=== PATIENT | male | born 1930 | race Caucasian/White ===

== ENCOUNTER 2017-08-01 05:45 | Observation (INO) | payer MEDICARE ==
[~2017-08-01] VITALS: Ht 152.4 cm; Wt 75.0 kg
[2017-08-01] VITALS (7 sets, daily range): BP systolic 143–188; BP diastolic 63–76; PULSE 46–60; RESP 16–24; TEMP 97.4–97.9; O2SAT 96–99
[~2017-08-01 05:45] MED LIST: AMBI5TAB PO; ASPI81TA82 PO; CIPR500T2 PO; CITRTAB7 PO; GABA300 PO; KEPP500T3 PO; LISI40TA PO; ZOCO40TA PO
[2017-08-01] MEDS ORDERED: SODIUM CHLORIDE 0.9% FLUSH 10 ML FLUSH IVF PRN (06:00)
[2017-08-01] MEDS ORDERED: LOSA50TA PO (06:16)
[2017-08-01] MEDS ORDERED: LATA0.002 EACH EYE (06:16)
[2017-08-01] MEDS ORDERED: SIMV20TA PO (06:16)
[2017-08-01] MEDS ORDERED: AMBI5TAB PO (06:16)
[2017-08-01] MEDS ORDERED: LEVE500 (06:16)
[2017-08-01] MEDS ORDERED: ASPI-516 CHEW (06:16)
[2017-08-01] MEDS ORDERED: GABA300C5 PO (06:16)
--- NOTE | 2017-08-01 06:16 | RADRPT ---
EXAM DATE: 08/01/2017 6:09 AM EDT AGE/SEX: 87 years / Male INDICATIONS: Chest pain CLINICAL DATA: This is the patient's initial encounter. Patient reports that signs and symptoms have been present for 1 month and indicates a pain score of 2/10. MEDICAL/SURGICAL HISTORY: None. None. COMPARISON: [facility] – [place], CHEST SINGLE AP, 08/09/2011. . FINDINGS: Single AP view of the chest. The lungs are clear. Cardiomediastinal silhouette within nor mal limits. No evidence of pleural effusion or pneumothorax. CONCLUSION: No acute cardiopulmonary disease identified. Electronically signed by: Mars Thompson MD 08/01/2017 6:15 AM EDT
[2017-08-01] MEDS: NITROGLYCERIN 0.4 MG SL 25 TABS/BTL SL SCH ×3 (06:29→07:40)
[2017-08-01] MEDS ORDERED: ASPIRIN 81 MG CHEW TAB PO ONE (06:30)
[2017-08-01 06:39] LABS: INTERNATIONAL NORMALIZED RATIO 1.1 RATIO; PROTHROMBIN TIME - PATIENT 10.7 SEC (9.8-11.6)
--- NOTE | 2017-08-01 06:39 | PD ---
HPI Chief Complaint: Chest Pain Time Seen by Provider: 06:02 Travel History International Travel<30 days: No Contact w/Intl Traveler<30days: No Traveled to known affect area: No History of Present Illness HPI Patient is a 87 year old male who presents to the ER with of chest pain. Patient reports that he has been having problems with tightness in his chest for the past few days. Patient reports that he woke up from sleep tonight and was not feeling well, reports that he continued to have tightness in his chest. Patient denies any shortness of breath, denies any diaphoresis, denies any nausea or vomiting with symptoms. Patient reports that nothing exacerbates symptoms, "relaxing makes his chest pain better." Patient reports that he was recently seen by his primary care doctor, Dr. Alva, he was switched from lisinopril to losartan 50 mg as he developed angioedema with the lisinopril. Patient reports that he has followed up with Dr. Krishna and was told that there was a blockage in his artery so he was started on a 20mg statin. Denies history of cardiac stents or bypass surgery PFSH Past Medical History Hx Anticoagulant Therapy: Yes (81 MG ASA) Cancer: No Cardiac Catheterization: Yes Cardiovascular Problems: Yes High Cholesterol: Yes Coronary Artery Disease: Yes Diminished Hearing: No Endocrine: No Gastrointestinal Disorders: No Genitourinary: Yes Hypertension: Yes Immune Disorder: No Implanted Vascular Access Dvce: No Insomnia: Yes Kidney Stones: Yes Neurologic: Yes Psychiatric: No Reproductive: No Respiratory: No Immunizations Current: Yes Seizures: Yes Tetanus Vaccination: Unknown Influenza Vaccination: Yes Past Surgical History Abdominal Surgery: Yes Cholecystectomy: Yes Neurologic Surgery: No Tonsillectomy: Yes Other Surgery: Yes Social History Alcohol Use: No Tobacco Use: No Substance Use: No Allergies-Medications (Allergen,Severity, Reaction): Coded Allergies: No Known Allergies (Verified Adverse Reaction, Unknown, 08/01/17) Reported Meds & Prescriptions Reported Meds & Active Scripts Active Reported Aspirin 81 Mg Chew 81 Mg CHEW DAILY Latanoprost Opth Drops (Latanoprost) 0.005% Drops 1 Drop EACH EYE HS Refrigerate until opened. Ambien (Zolpidem Tartrate) 5 Mg Tab 5 Mg PO HS PRN Losartan (Losartan Potassium) 50 Mg Tab 50 Mg PO DAILY Simvastatin 20 Mg Tab 20 Mg PO DAILY Gabapentin 300 Mg Cap 300 Mg PO TID Keppra (Levetiracetam) 500 Mg Tab 500 Mg BID Review of Systems General / Constitutional: No: Fever Eyes: No: Visual changes HENT: No: Headaches Cardiovascular: Positive: Chest Pain or Discomfort Respiratory: No: Shortness of Breath Gastrointestinal: No: Abdominal Pain Genitourinary: No: Dysuria Musculoskeletal: No: Pain Skin: No Rash Neurologic: No: Weakness Psychiatric: No: Depression Endocrine: No: Polydipsia Hematologic/Lymphatic: No: Easy Bruising Physical Exam Narrative GENERAL: Mild distress SKIN: Focused skin assessment warm/dry. HEAD: Atraumatic. Normocephalic. EYES: Pupils equal and round. No scleral icterus. No injection or drainage. ENT: No nasal bleeding or discharge. Mucous membranes pink and moist. NECK: Trachea midline. No JVD. CARDIOVASCULAR: Regular rate and rhythm. No murmur appreciated. RESPIRATORY: No accessory muscle use. Clear to auscultation. Breath sounds equal bilaterally. GASTROINTESTINAL: Abdomen soft, non-tender, nondistended. Hepatic and splenic margins not palpable. MUSCULOSKELETAL: No obvious deformities. No clubbing. No cyanosis. No edema. NEUROLOGICAL: Awake and alert. No obvious cranial nerve deficits. Motor grossly within normal limits. Normal speech. PSYCHIATRIC: Appropriate mood and affect; insight and judgment normal. Data Data Last Documented VS Vital Signs Date Time Temp Pulse Resp B/P (MAP) Pulse Ox O2 Delivery O2 Flow Rate FiO2 08/01/17 06:00 57 24 99 Room Air 08/01/17 05:46 97.4 188/76 (113) Orders Orders Electrocardiogram (08/01/17 05:54) B-Type Natriuretic Peptide (08/01/17 05:54) Ckmb (Isoenzyme) Profile (08/01/17 05:54) Complete Blood Count With Diff (08/01/17 05:54) Comprehensive Metabolic Panel (08/01/17 05:54) Magnesium (Mg) (08/01/17 05:54) Prothrombin Time / Inr (Pt) (08/01/17 05:54) Act Partial Throm Time (Ptt) (08/01/17 05:54) Troponin I (08/01/17 05:54) Lipase (08/01/17 05:54) Chest, Single Ap (08/01/17 05:54) Ecg Monitoring (08/01/17 05:54) Bilateral Bp Monitoring (08/01/17 05:54) Iv Access Insert/Monitor (08/01/17 05:54) Oximetry (08/01/17 05:54) Sodium Chloride 0.9% Flush (Ns Flush) (08/01/17 06:00) Aspirin Chew (Aspirin Chew) (08/01/17 06:30) Nitroglycerin Sl (Nitrostat Sl) (08/01/17 06:30) CKMB (08/01/17 06:00) CKMB% (08/01/17 06:00) Labs Laboratory Tests Test 08/01/17 06:00 White Blood Count 5.8 TH/MM3 Red Blood Count 5.03 MIL/MM3 Hemoglobin 14.6 GM/DL Hematocrit 43.6 % Mean Corpuscular Volume 86.7 FL Mean Corpuscular Hemoglobin 29.0 PG Mean Corpuscular Hemoglobin Concent 33.4 % Red Cell Distribution Width 12.9 % Platelet Count 220 TH/MM3 Mean Platelet Volume 8.1 FL Neutrophils (%) (Auto) 66.7 % Lymphocytes (%) (Auto) 17.9 % Monocytes (%) (Auto) 9.2 % Eosinophils (%) (Auto) 5.5 % Basophils (%) (Auto) 0.7 % Neutrophils # (Auto) 3.9 TH/MM3 Lymphocytes # (Auto) 1.0 TH/MM3 Monocytes # (Auto) 0.5 TH/MM3 Eosinophils # (Auto) 0.3 TH/MM3 Basophils # (Auto) 0.0 TH/MM3 CBC Comment DIFF FINAL Differential Comment Prothrombin Time 10.7 SEC Prothromb Time International Ratio 1.1 RATIO Activated Partial Thromboplast Time 28.7 SEC Blood Urea Nitrogen 13 MG/DL Creatinine 0.93 MG/DL Random Glucose 109 MG/DL Total Protein 6.7 GM/DL Albumin 4.0 GM/DL Calcium Level 8.5 MG/DL Magnesium Level 2.2 MG/DL Alkaline Phosphatase 43 U/L Aspartate Amino Transf (AST/SGOT) 18 U/L Alanine Aminotransferase (ALT/SGPT) 20 U/L Total Bilirubin 1.8 MG/DL Sodium Level 142 MEQ/L Potassium Level 3.7 MEQ/L Chloride Level 103 MEQ/L Carbon Dioxide Level 30.3 MEQ/L Anion Gap 9 MEQ/L Estimat Glomerular Filtration Rate 77 ML/MIN Total Creatine Kinase 101 U/L Troponin I LESS THAN 0.02 NG/ML Lipase 386 U/L MDM Medical Decision Making Medical Screen Exam Complete: Yes Emergency Medical Condition: Yes Medical Record Reviewed: Yes Interpretation(s) EKG at 0557: Sinus pau at 53bpm, qt/qtc: 423/405, no acute st or t wave changes Vital Signs Date Time Temp Pulse Resp B/P (MAP) Pulse Ox O2 Delivery O2 Flow Rate FiO2 08/01/17 06:00 57 24 99 Room Air 08/01/17 06:00 24 99 Room Air 08/01/17 05:46 97.4 60 18 188/76 (113 96 Differential Diagnosis ACS, arrhythmia, electrolyte abnormalities, PE, pneumothorax Narrative Course During the course of the patients emergency department visit, the patients history, examination, and differential diagnosis were reviewed with the patient. The patient was placed on a satellite project site monitor with oximetry and frequent blood pressure monitoring. The patient had an IV access obtained and blood work sent for analysis. The patient was initially provided aspirin 162mg as well as nitro Radiology studies were reviewed and remarkable for Last Impressions Chest X-Ray 08/01/17 0554 Signed Impressions: CONCLUSION: No acute cardiopulmonary disease identified. The patients laboratory studies were reviewed and remarkable for Laboratory Tests Test 08/01/17 06:00 White Blood Count 5.8 TH/MM3 (4.0-11.0) Red Blood Count 5.03 MIL/MM3 (4.50-5.90) Hemoglobin 14.6 GM/DL (13.0-17.0) Hematocrit 43.6 % (39.0-51.0) Mean Corpuscular Volume 86.7 FL (80.0-100.0) Mean Corpuscular Hemoglobin 29.0 PG (27.0-34.0) Mean Corpuscular Hemoglobin Concent 33.4 % (32.0-36.0) Red Cell Distribution Width 12.9 % (11.6-17.2) Platelet Count 220 TH/MM3 (150-450) Mean Platelet Volume 8.1 FL (7.0-11.0) Neutrophils (%) (Auto) 66.7 % (16.0-70.0) Lymphocytes (%) (Auto) 17.9 % (9.0-44.0) Monocytes (%) (Auto) 9.2 % (0.0-8.0) Eosinophils (%) (Auto) 5.5 % (0.0-4.0) Basophils (%) (Auto) 0.7 % (0.0-2.0) Neutrophils # (Auto) 3.9 TH/MM3 (1.8-7.7) Lymphocytes # (Auto) 1.0 TH/MM3 (1.0-4.8) Monocytes # (Auto) 0.5 TH/MM3 (0-0.9) Eosinophils # (Auto) 0.3 TH/MM3 (0-0.4) Basophils # (Auto) 0.0 TH/MM3 (0-0.2) CBC Comment DIFF FINAL Differential Comment Prothrombin Time 10.7 SEC (9.8-11.6) Prothromb Time International Ratio 1.1 RATIO Activated Partial Thromboplast Time 28.7 SEC (24.3-30.1) Blood Urea Nitrogen 13 MG/DL (7-18) Creatinine 0.93 MG/DL (0.60-1.30) Random Glucose 109 MG/DL (74-106) Total Protein 6.7 GM/DL (6.4-8.2) Albumin 4.0 GM/DL (3.4-5.0) Calcium Level 8.5 MG/DL (8.5-10.1) Magnesium Level 2.2 MG/DL (1.5-2.5) Alkaline Phosphatase 43 U/L (45-117) Aspartate Amino Transf (AST/SGOT) 18 U/L (15-37) Alanine Aminotransferase (ALT/SGPT) 20 U/L (12-78) Total Bilirubin 1.8 MG/DL (0.2-1.0) Sodium Level 142 MEQ/L (136-145) Potassium Level 3.7 MEQ/L (3.5-5.1) Chloride Level 103 MEQ/L (98-107) Carbon Dioxide Level 30.3 MEQ/L (21.0-32.0) Anion Gap 9 MEQ/L (5-15) Estimat Glomerular Filtration Rate 77 ML/MIN (>89) Total Creatine Kinase 101 U/L (39-308) Troponin I LESS THAN 0.02 NG/ML Lipase 386 U/L (73-393) Patient with relief of chest pain after 2 sublingual nitroglycerin. Will observe in the chest pain unit. Diagnosis Primary Impression: Chest pain Qualified Codes: R07.9 - Chest pain, unspecified Admitting Information Admitting Physician Requests: Observation Carina Carr DO Aug 01, 2017 06:39
[2017-08-01 06:40] LABS: AUTOMATED NEUTROPHIL # 3.9 TH/MM3 (1.8-7.7); BASOPHIL % 0.7 % (0.0-2.0); EOSINOPHIL # 0.3 TH/MM3 (0-0.4); EOSINOPHIL % 5.5 % (0.0-4.0); HEMATOCRIT 43.6 % (39.0-51.0); HEMOGLOBIN 14.6 GM/DL (13.0-17.0); LYMPH % 17.9 % (9.0-44.0); MEAN CELL VOLUME 86.7 FL (80.0-100.0); MEAN CORPUSCULAR HGB CONC 33.4 % (32.0-36.0); MEAN PLATELET VOLUME 8.1 FL (7.0-11.0); MONO % 9.2 % (0.0-8.0); MONOCYTE # 0.5 TH/MM3 (0-0.9); NEUT % 66.7 % (16.0-70.0); PLATELET COUNT 220 TH/MM3 (150-450); RED BLOOD COUNT 5.03 MIL/MM3 (4.50-5.90); RED CELL DISTRIBUTION WIDTH 12.9 % (11.6-17.2); WHITE BLOOD COUNT 5.8 TH/MM3 (4.0-11.0)
[2017-08-01 06:48] LABS: ALT (GPT) 20 U/L (12-78); AST (GOT) 18 U/L (15-37); BICARBONATE 30.3 MEQ/L (21.0-32.0); BLOOD UREA NITROGEN 13 MG/DL (7-18); CALCIUM 8.5 MG/DL (8.5-10.1); CHLORIDE 103 MEQ/L (98-107); CREATININE 0.93 MG/DL (0.60-1.30); GLOMERULAR FILTRATION RATE 77 ML/MIN (>89); GLUCOSE,RANDOM 109 MG/DL (74-106); MAGNESIUM 2.2 MG/DL (1.5-2.5); SODIUM (NA) 142 MEQ/L (136-145)
[2017-08-01 06:52] LABS: ALKALINE PHOSPHATASE 43 U/L (45-117); TOTAL BILIRUBIN ADULT 1.8 MG/DL (0.2-1.0); TOTAL PROTEIN 6.7 GM/DL (6.4-8.2); TROPONIN I LESS THAN 0.02 NG/ML (0.02-0.05)
[2017-08-01] MEDS ORDERED: SODIUM CHLORIDE 0.9% FLUSH 10 ML FLUSH IV FLUSH PRN (07:00)
--- NOTE | 2017-08-01 08:22 | HHI.HP ---
HPI Primary Care Physician Joan Krishna MD Chief Complaint Chest tightness History of Present Illness 87-year-old male with known hypertension and hyperlipidemia presents emergency room for further evaluation of chest tightness. Onset 0400. Reports waking up feeling anxious with chest tightness. Reports recently started a new blood pressure medication on Monday. Endorses becoming worried new blood pressure medications was not working. BP was 190/85 therefore came to ER for further evaluation. No associated symptoms of nausea, vomiting, dyspnea, or diaphoresis. Unable to give accurate duration. Also reports a different chest discomfort as described above. Onset 3 days after straining during a bowel movement. Location substernal. Characterized as "achy and sore." No radiation. No associated symptoms of nausea, vomiting, dyspnea, or diaphoresis. Duration constant x3 days. No relieving factors. Denies similar pain in the past. Expresses concern over chest soreness last 3 days and has worried about blood pressure and chest soreness causing him anxiety. Review of Systems General: No fatigue, weakness, fever, chills, recent illness, or change in appetite. Has been in his general state of health. HEENT: No WHITNEY, no vision changes, no nasal congestion or drainage CV: Constant chest pain x3 days as stated above. No further chest tightness. RESP: No SOB, cough, or wheeze GI: No nausea, vomiting, bowel changes, diarrhea, pain, distention, melena, or blood in the stool. History of constipation. No change in appetite, no unintentional weight gain or weight loss. : No dysuria, urgency, frequency EXT: No lower leg edema, no paraesthesias MS: No change in ROM. Chest discomfort after straining with bowel movement x3 days ago. NEURO: No change in memory, dizziness, difficulty with balance, LOC, or motor/ sensory deficits PSYCH: No anxiety, depression, or suicidal ideation SKIN: No rashes, no concerning lesions Past Family Social History Allergies: Coded Allergies: No Known Allergies (Verified Allergy, Unknown, 08/01/17) Past Medical History Hypertension, hyperlipidemia, renal calculi, seizure disorder, insomnia Past Surgical History Cholecystectomy Reported Medications Reported Meds & Active Scripts Active Reported Aspirin 81 Mg Chew 81 Mg CHEW DAILY Latanoprost Opth Drops (Latanoprost) 0.005% Drops 1 Drop EACH EYE HS Refrigerate until opened. Ambien (Zolpidem Tartrate) 5 Mg Tab 5 Mg PO HS PRN Losartan (Losartan Potassium) 50 Mg Tab 50 Mg PO DAILY Simvastatin 20 Mg Tab 20 Mg PO DAILY Gabapentin 300 Mg Cap 300 Mg PO TID Keppra (Levetiracetam) 500 Mg Tab 500 Mg BID Active Ordered Medications Current Medications Medications (Trade) Dose Ordered Sig/Mejia Route Start Time Stop Time Status Last Admin (NS Flush) 2 ml UNSCH PRN IVF 08/01/17 06:00 (NS Flush) 2 ml UNSCH PRN IV FLUSH 08/01/17 07:00 (NS Flush) 2 ml BID IV FLUSH 08/01/17 09:00 (Keppra) 500 mg Q12HR PO 08/01/17 09:00 (Neurontin) 300 mg TID PO 08/01/17 09:00 (Cozaar) 50 mg DAILY PO 08/01/17 09:00 Social History Known hypertension and hyperlipidemia. No known diabetes. Lifelong non-smoker. Denies any alcohol use. Past cardiac testing No recent cardiac testing. 02/24/10 Cardiac catheterization (Dr. Krishna)-Conclusions 1. Normal left auricular function. 2. Diffuse three-vessel coronary disease. Physical Exam Vital Signs Vital Signs Date Time Temp Pulse Resp B/P (MAP) Pulse Ox O2 Delivery O2 Flow Rate FiO2 08/01/17 07:39 46 18 149/70 (96) 98 Room Air 08/01/17 06:00 57 24 99 Room Air 08/01/17 06:00 24 99 Room Air 08/01/17 05:46 97.4 60 18 188/76 (113) 96 Physical Exam GENERAL: Alert WN, WD, NAD, pleasant, elderly male HEAD: NC, AT CV: RRR, without murmur, rub, gallop, no JVD, S1-S2 no S3-S4. Generalized chest tender with palpation. RESP: Clear lungs throughout bilateral, no crackles, wheeze, rhonchi, symmetrical chest rise, nonlabored, able to speak in full sentences ABD: Soft, NT, ND, no masses, positive bowel tones EXT: Pulses +2x4, no dependent edema MS: Normal tone x4 extremities, nontender, no obvious deformities, full range of motion NEURO: CN II through CN XII grossly intact, motor strength 5/5, gait WNL PSYCH: A+O x3, pleasant affect, appropriate speech, insight, and judgement. Anxious mood. SKIN: Normal turgor, normal texture, no lesions, no rashes, brisk cap refill, even hair distribution Laboratory Laboratory Tests Test 08/01/17 06:00 White Blood Count 5.8 Red Blood Count 5.03 Hemoglobin 14.6 Hematocrit 43.6 Mean Corpuscular Volume 86.7 Mean Corpuscular Hemoglobin 29.0 Mean Corpuscular Hemoglobin Concent 33.4 Red Cell Distribution Width 12.9 Platelet Count 220 Mean Platelet Volume 8.1 Neutrophils (%) (Auto) 66.7 Lymphocytes (%) (Auto) 17.9 Monocytes (%) (Auto) 9.2 Eosinophils (%) (Auto) 5.5 Basophils (%) (Auto) 0.7 Neutrophils # (Auto) 3.9 Lymphocytes # (Auto) 1.0 Monocytes # (Auto) 0.5 Eosinophils # (Auto) 0.3 Basophils # (Auto) 0.0 CBC Comment DIFF FINAL Differential Comment Prothrombin Time 10.7 Prothromb Time International Ratio 1.1 Activated Partial Thromboplast Time 28.7 Blood Urea Nitrogen 13 Creatinine 0.93 Random Glucose 109 Total Protein 6.7 Albumin 4.0 Calcium Level 8.5 Magnesium Level 2.2 Alkaline Phosphatase 43 Aspartate Amino Transf (AST/SGOT) 18 Alanine Aminotransferase (ALT/SGPT) 20 Total Bilirubin 1.8 Sodium Level 142 Potassium Level 3.7 Chloride Level 103 Carbon Dioxide Level 30.3 Anion Gap 9 Estimat Glomerular Filtration Rate 77 Total Creatine Kinase 101 Creatine Kinase MB 1.8 Troponin I LESS THAN 0.02 B-Type Natriuretic Peptide 7 Lipase 386 Result Diagram: 08/01/17 0608/01/17 06 Imaging Last 48 hours Impressions Chest X-Ray 08/01/17 0554 Signed Impressions: CONCLUSION: No acute cardiopulmonary disease identified. Course EKG Normal sinus rhythm, no ST-T segment change Caprini VTE Risk Assessment Caprini VTE Risk Assessment: Mod/High Risk (score >= 2) Caprini Risk Assessment Model Point Value = 1 Point Value = 2 Point Value = 3 Point Value = 5 Age 41-60 Minor surgery BMI > 25 kg/m2 Swollen legs Varicose veins or History of unexplained or recurrent spontaneous Oral contraceptives or hormone replacement Sepsis (< 1 month) Serious lung disease, including pneumonia (< 1 month) Abnormal pulmonary function Acute myocardial infarction Congestive heart failure (< 1 month) History of inflammatory bowel disease Medical patient at bed rest Age 61-74 Arthroscopic surgery Major open surgery (> 45 min) Laparoscopic surgery (> 45 min) Malignancy Confined to bed (> 72 hours) Immobilizing plaster cast Central venous access Age >= 75 History of VTE Family history of VTE Factor V Leiden Prothrombin [id number] Lupus anticoagulant Anticardiolipin antibodies Elevated serum homocysteine Heparin-induced thrombocytopenia Other congenital or acquired thrombophilia Stroke (< 1 month) Elective arthroplasty Hip, pelvis, or leg fracture Acute spinal cord injury (< 1 month) Prophylaxis Regimen Total Risk Factor Score Risk Level Prophylaxis Regimen 0-1 Low Early ambulation 2 Moderate Order ONE of the following: *Sequential Compression Device (SCD) *Heparin 5000 units SQ BID 3-4 Higher Order ONE of the following medications: *Heparin 5000 units SQ TID *Enoxaparin/Lovenox 40 mg SQ daily (WT < 150 kg, CrCl > 30 mL/min) *Enoxaparin/Lovenox 30 mg SQ daily (WT < 150 kg, CrCl > 10-29 mL/min) *Enoxaparin/Lovenox 30 mg SQ BID (WT < 150 kg, CrCl > 30 mL/min) AND/OR *Sequential Compression Device (SCD) 5 or more Highest Order ONE of the following medications: *Heparin 5000 units SQ TID (Preferred with Epidurals) *Enoxaparin/Lovenox 40 mg SQ daily (WT < 150 kg, CrCl > 30 mL/min) *Enoxaparin/Lovenox 30 mg SQ daily (WT < 150 kg, CrCl > 10-29 mL/min) *Enoxaparin/Lovenox 30 mg SQ BID (WT < 150 kg, CrCl > 30 mL/min) AND *Sequential Compression Device (SCD) Assessment and Plan Assessment and Plan #1 Atypical chest pain-admitted to chest pain center. Continue ACS protocol initiated in ER, including 3 sets of EKGs and cardiac enzymes. Seen and evaluated by Dr. Dolly Jaquez. Call placed to Dr. Krishna office to make aware of patient's arrival to chest pain center and discussed plan of care. Likely will rule out with 3 sets of EKGs and cardiac enzymes and discharge home keeping follow-up appointment with Dr. Krishna on 08/09/17. Reassurance provided chest discomfort mostly musculoskeletal chest wall pain. Encouraged applying heat to affect area and using over the counter Aleve as needed for next 2 days. #2 History of hypertension-continue losartan, add vasodilator amlodipine 2.5 mg po daily. Discussed keeping a blood pressure log is helpful, however worry regarding maintaining blood pressure within a certain limit can lead to elevation of blood pressure. Encouraged taking blood pressure during times of relaxation and not taking during times he feels anxious. Encouraged low sodium diet. Instructed to call him PCP upon discharge to scheduled follow up appointment and make PCP aware of medication change. [phone] with Dr Krishna's office, RN Gabrielle. Made aware of plan to add amlodipine and possible discharge after ACS ruled out later this afternoon. Requested Dr. Krishna return call if any further cardiac testing recommended prior to discharge, otherwise [employer] plan would be to discharge home keeping scheduled appointment with Dr. Krishna on 08/09/17. Jenny Leahy Aug 01, 2017 08:22
[2017-08-01] MEDS ORDERED: ONDANSETRON ODT 4 MG TAB PO PRN (08:30)
[2017-08-01] MEDS ORDERED: ACETAMINOPHEN 500 MG CPLT PO PRN (08:30)
[2017-08-01] MEDS ORDERED: NITROGLYCERIN 0.4 MG SL 25 TABS/BTL SL PRN (08:30)
[2017-08-01] MEDS ORDERED: LOSARTAN 50 MG TAB PO SCH (09:00)
[2017-08-01] MEDS ORDERED: levETIRAcetam 500 MG TAB PO SCH (09:00)
[2017-08-01] MEDS ORDERED: ASPIRIN 325 MG TAB PO SCH (09:00)
[2017-08-01] MEDS ORDERED: GABAPENTIN 300 MG CAP PO SCH (09:00)
[2017-08-01] MEDS ORDERED: SODIUM CHLORIDE 0.9% FLUSH 10 ML FLUSH IV FLUSH SCH (09:00)
[2017-08-01 09:36] LABS: TROPONIN I LESS THAN 0.02 NG/ML (0.02-0.05)
[2017-08-01 12:07] LABS: TROPONIN I LESS THAN 0.02 NG/ML (0.02-0.05)
[2017-08-01] MEDS ORDERED: AMLO2.5T PO (12:24)
--- NOTE | 2017-08-01 12:24 | HHI.DCPOC ---
Discharge Care Plan Diagnosis: (1) Musculoskeletal chest pain (2) Hypertension Goals to Promote Your Health * To prevent worsening of your condition and complications * To maintain your health at the optimal level Directions to Meet Your Goals Take your medications as prescribed Follow your dietary instruction Follow activity as directed Keep your appointments as scheduled Take your immunizations and boosters as scheduled If your symptoms worsen call your PCP, if no PCP go to Urgent Care Center or Emergency Room Smoking is Dangerous to Your Health. Avoid second hand smoke Call the 24-hour hour crisis hotline for domestic abuse at Jenny Leahy Aug 01, 2017 12:24
--- NOTE | 2017-08-01 13:59 | EKG ---
Date Performed: 08/01/2017 Time Performed: 09:25:19 PTAGE: 87 years EKG: SINUS BRADYCARDIA POSSIBLE RIGHT VENTRICULAR CONDUCTION DELAY SEPTAL MYOCARDIAL INFARCTION ABNORMAL ECG No significant change from prior electrocardiogram. PREVIOUS TRACING : 08/01/2017 05.57 DOCTOR: Devaughn Lynch Interpretating Date/Time 08/01/2017 13:59:12
--- NOTE | 2017-08-01 14:11 | EKG ---
Date Performed: 08/01/2017 Time Performed: 05:57:18 PTAGE: 87 years EKG: SINUS BRADYCARDIA SEPTAL MYOCARDIAL INFARCTION ABNORMAL ECG Compared to prior electrocardio gram, rate has decreased . DOCTOR: Devaughn Lynch Interpretating Date/Time 08/01/2017 14:09:20
== END 2017-08-01 13:10 | disposition home or self-care (01) ==
LOC: NEPC 05:45 → NEDA 06:59 → NEPGCP 09:40
PROVIDERS: ADMIT Internal Medicine Interventional Cardiology; ATTEND Internal Medicine Interventional Cardiology
DX: R07.89 Other chest pain (principal); I25.10 Atherosclerotic heart disease of native coronary artery without angina pectoris; I10 Essential (primary) hypertension; E78.5 Hyperlipidemia, unspecified; G40.909 Epilepsy, unspecified, not intractable, without status epilepticus; R00.1 Bradycardia, unspecified; R94.31 Abnormal electrocardiogram [ECG] [EKG]; Z79.899 Other long term (current) drug therapy; Z79.82 Long term (current) use of aspirin
CPT/HCPCS: 71045; 80053; 82550; 82552; 83690; 83735; 83880; 84484; 85025; 85610; 85730; 93005; 99285; G0378

== ENCOUNTER 2017-08-27 20:50 | Observation (INO) ==
--- NOTE | 2017-08-27 21:23 | ED ---
HPI General Chief complaint: Chest Pain Stated complaint: Chest tightness/Reaction to Bp meds Time Seen by Provider: 08/27/17 21:10 Source: patient Mode of arrival: ambulatory Limitations: no limitations History of Present Illness HPI narrative: 87yo M with PMH of HTN presents to the ED with c/o burning sensation in left chest for 2 hours. Associated with some ache in left arm and sob. Said he has been having these episodes for 2 weeks. He follows with Dr. Krishna and is scheduled to have stress test next week. Last stress test was a while ago. Denies any fever, cough, n/v, abdominal pain, focal weakness or numbness. Pt's primary care physician had recently switched his HTN medication from lisinopril to losartan because of angioedema and feel that all these symptoms are reaction to his new medication. Related Data Home Medications Medication Instructions Recorded Confirmed aspirin [Aspir-81] 81 mg PO DAILY 08/27/17 08/27/17 gabapentin 300 mg PO TID 08/27/17 08/27/17 levetiracetam 500 mg PO Q12H 08/27/17 08/27/17 losartan 50 mg PO DAILY 08/27/17 08/27/17 sertraline [Zoloft] 25 mg PO DAILY 08/27/17 08/27/17 simvastatin 20 mg PO QPM 08/27/17 08/27/17 timolol 1 drp OPHTHALMIC (EYE) BID 08/27/17 08/27/17 zolpidem [Ambien] 5 mg PO HS 08/27/17 08/27/17 Allergies Allergy/AdvReac Type Severity Reaction Status Date / Time No Known Allergies Allergy Verified 08/27/17 23:32 Review of Systems ROS Unobtainable All other systems reviewed negative except as stated in HPI [facility] Medical History Medical History Chest pain (Acute) Hypertension (Acute) Anxiety (Acute) Social History Social History Second Hand Smoke Exposure: No Smoking Status: Former smoker Tobacco Type: Cigarettes How Often Do You Have a Drink Containing Alcohol: Monthly or less Recent Travel in [facility] within the Last 8 Weeks: No Recent Out of Country Travel within the Last 8 Weeks: No Immunization History Tetanus Immunization: Unsure Exam Narrative Exam Narrative: GENERAL: 87yo M not in distress. SKIN: Focused skin assessment warm/dry. HEAD: Atraumatic. Normocephalic. EYES: Pupils equal and round. No scleral icterus. No injection or drainage. ENT: No nasal bleeding or discharge. Mucous membranes pink and moist. NECK: Trachea midline. No JVD. CARDIOVASCULAR: Regular rate and rhythm. No murmur appreciated. RESPIRATORY: No accessory muscle use. Clear to auscultation. Breath sounds equal bilaterally. GASTROINTESTINAL: Abdomen soft, non-tender, nondistended. MUSCULOSKELETAL: No obvious deformities. No clubbing. No cyanosis. No edema. NEUROLOGICAL: Awake and alert. No obvious cranial nerve deficits. Motor grossly within normal limits. Normal speech. PSYCHIATRIC: Appropriate mood and affect; insight and judgment normal. Course Initial Documented Vital Signs Temperature 98.1 F 08/27/17 20:55 Pulse Rate 83 08/27/17 20:55 Respiratory Rate 18 08/27/17 20:55 Blood Pressure 151/64 H 08/27/17 20:55 Pulse Oximetry 98 08/27/17 20:55 Last Documented Vital Signs Temperature 98.1 F 08/27/17 20:59 Pulse Rate 61 08/28/17 00:54 Respiratory Rate 16 08/28/17 00:54 Blood Pressure 129/67 08/28/17 00:54 Pulse Oximetry 98 08/28/17 00:03 Medical Decision Making MDM Narrative Medical decision making narrative: 87yo M here with atypical chest pain. Pt was just admitted to chest pain center on 08/01/17 but they did not do any stress test. Pt follows with Dr. Krishna and is suppose to have a stress test scheduled on 09/04/17. Labs reviewed, no leukocytosis. H/H normal. Troponin negative. CXR showed no active disease. Pt given aspirin and protonix which helped with pain. Even though chest pain is atypical, it was associated with sob and left arm pain. He has not had a stress test for 10 years and would rather stay here and have stress test than wait until 09/04. Will admit for serial EKG, cardiac enzyme and likely stress test in the morning. Differential Diagnosis Differential Diagnosis: ACS vs. anxiety vs. GERD vs. musculoskeletal pain Lab Data Result diagrams: 08/27/17 21:40 08/27/17 21:40 Lab Results 08/27/17 08/27/17 08/27/17 Range/Units 21:40 21:40 21:40 CBC w Diff Auto diff final WBC 10.8 (4.0-11.0) th/mm3 RBC 4.94 (4.50-5.90) mil/mm3 Hgb 14.7 (13.0-17.0) gm/dL Hct 43.0 (39.0-51.0) % MCV 87.0 (80.0-100.0) fL MCH 29.7 (27.0-34.0) pg MCHC 34.2 (32.0-36.0) % RDW 12.6 (11.6-17.2) % Plt Count 275 (150-450) th/mm3 MPV 8.7 (7.0-11.0) fL Neut % (Auto) 78.2 H (16.0-70.0) % Lymph % (Auto) 10.0 (9.0-44.0) % [place] % (Auto) 8.3 H (0.0-8.0) % Eos % (Auto) 0.8 (0.0-4.0) % Baso % (Auto) 2.7 H (0.0-2.0) % Neut # (Auto) 8.4 H (1.8-7.7) th/mm3 Lymph # (Auto) 1.1 (1.0-4.8) th/mm3 [place] # (Auto) 0.9 (0.0-0.9) th/mm3 Eos # (Auto) 0.1 (0.0-0.4) th/mm3 Baso # (Auto) 0.3 H (0.0-0.2) th/mm3 WBC Differential . Differential Comment . PT 11.1 (9.8-11.6) sec INR 1.1 Ratio APTT 27.6 (24.3-30.1) sec Sodium 139 (136-145) meq/L Potassium 3.6 (3.5-5.1) meq/L Chloride 103 (98-107) meq/L Carbon Dioxide 29.2 (21.0-32.0) meq/L Anion Gap 7 (5-15) meq/L BUN 16 (7-18) mg/dL Creatinine 0.78 (0.60-1.30) mg/dL Estimated GFR Greater than 89 (>89) mL/min Random Glucose 123 H (74-106) mg/dL Calcium 8.5 (8.5-10.1) mg/dL Magnesium 2.0 (1.5-2.5) mg/dL Troponin I Less than 0.02 L (0.02-0.05) ng/mL Imaging Data Radiologist's impression: ITS Impressions Chest X-Ray 08/27/17 21:19 CONCLUSION: No active disease. ECG Data EKG Prior to Arrival: No Attestation: I personally reviewed and interpreted this ECG as follows: Interpretation: NSR 60bpm. LAD. No ST segment elevation or depression. Discharge Plan Discharge Disposition Patient Disposition: 30 Still Patient Physicians Team ED Provider: Odalys Combs Primary Care Provider: Jefferson Sweeney Attending Provider: Carina Schultz Discharge Interventions Interventions: Vital Signs Last Done: 08/27/17 21:12 Vital Signs Last Done: 08/28/17 00:03 Status ED Status: Admitted Observation Patient
[2017-08-27 21:48] LABS: Baso # (Auto) 0.3 th/mm3 (0.0-0.2); Baso % (Auto) 2.7 % (0.0-2.0); Eos # (Auto) 0.1 th/mm3 (0.0-0.4); Eos % (Auto) 0.8 % (0.0-4.0); Hemoglobin 14.7 gm/dL (13.0-17.0); Lymph # (Auto) 1.1 th/mm3 (1.0-4.8); Mean Corpuscular HGB Conc 34.2 % (32.0-36.0); Mean Corpuscular Hemoglobin 29.7 pg (27.0-34.0); Mean Platelet Volume 8.7 fL (7.0-11.0); Mono # (Auto) 0.9 th/mm3 (0.0-0.9); Mono % (Auto) 8.3 % (0.0-8.0); Neut # (Auto) 8.4 th/mm3 (1.8-7.7); Neut % (Auto) 78.2 % (16.0-70.0); Platelet Count 275 th/mm3 (150-450); Red Blood Count 4.94 mil/mm3 (4.50-5.90); Red Cell Distribution Width 12.6 % (11.6-17.2); White Blood Count 10.8 th/mm3 (4.0-11.0)
[2017-08-27 21:55] LABS: Chloride 103 meq/L (98-107); Potassium 3.6 meq/L (3.5-5.1); Sodium 139 meq/L (136-145)
[2017-08-27 21:58] LABS: Anion Gap 7 meq/L (5-15); Blood Urea Nitrogen 16 mg/dL (7-18); Calcium 8.5 mg/dL (8.5-10.1); Carbon Dioxide 29.2 meq/L (21.0-32.0); Glucose,Random 123 mg/dL (74-106)
[2017-08-27 22:01] LABS: Activated Partial Thrombo Time 27.6 sec (24.3-30.1); INR 1.1 Ratio; Prothrombin Time 11.1 sec (9.8-11.6)
[2017-08-27 22:02] LABS: Glomerular Filtration Rate Greater Than 89 mL/min (>89)
--- NOTE | 2017-08-27 22:07 | XR ---
EXAM DATE: 08/27/2017 9:58 PM EDT AGE/SEX: 87 years / Male INDICATIONS: Chest tightness. CLINICAL DATA: This is the patient's initial encounter. Patient reports that signs and symptoms have been present for 1 day and indicates a pain score of 2/10. MEDICAL/SURGICAL HISTORY: None. None. COMPARISON: [facility] [place], CHEST SINGLE AP, 08/01/2017. . FINDINGS: A single AP view of the chest demonstrates the lungs to be symmetrically aerated without evidence of mass, infiltrate or effusion. The cardiomediastinal contours are unremarkable. Osseous structures a re intact. CONCLUSION: No active disease. Electronically signed by: Manuel Donnelly MD 08/27/2017 10:06 PM EDT
[2017-08-28] MEDS ORDERED: Morphine Inj 4 MG/ML Vial IV.PUSH PRN (00:05)
[2017-08-28] MEDS ORDERED: Acetaminophen 500 MG Tablet PO PRN (00:05)
[2017-08-28] MEDS ORDERED: Regadenoson Inj 0.4 MG/5 ML Syringe IV.PUSH ONE (00:11)
[2017-08-28] MEDS ORDERED: Heparin - SQ 10,000 UNITS/ML Vial SQ SCH (00:15)
[2017-08-28 01:52] LABS: Creatine Kinase 88 U/L (39-308)
[2017-08-28] MEDS ORDERED: hydrALAZINE HCl Inj 20 MG/ML Vial IV.PUSH ONE (04:46)
[2017-08-28 04:57] LABS: Creatine Kinase 96 U/L (39-308)
--- NOTE | 2017-08-28 08:56 | P.HP ---
History of Present Illness Primary Care Physician: Jefferson Sweeney MD Chief Complaint: Chest pain History of Present Illness: 87-year-old male with known history of hypertension, hyperlipidemia, coronary artery disease, seizure disorder who presented the hospital because of chest pain. Patient states that his symptoms started approximately 1 month ago. He states that he was straining to have a bowel movement and started developing chest discomfort. He states that is intermittent in lasts for a couple minutes at a time and resolves on its own. He classifies at 8/10 on a pain scale. 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 Krishna approximately 1-1/2 weeks ago. Patient is scheduled to have an outpatient stress test done in a few days. Patient indicates that he has not had any recurrent pain since being admitted to the hospital. He denies any nausea, vomiting, shortness of breath, dyspnea, radiation of pain to neck, back, shoulder, arm. Denies any lightheadedness, dizziness. Patient has had previous cardiac catheterization done in 2010, at that time patient had multivessel disease ranging up to 70%, patient is being medically managed at this time. Patient has not had any intervention. - Diagnosis (1) Chest pain Review of Systems All other systems reviewed negative except as stated in HPI Cardiovascular: Reports chest pain PMFSH - History History Provided By: Patient - Medical History Medical History: Medical History (Last Updated 08/28/17 @ 08:13 by CYNTHIA Gibson) Chest pain Coronary artery disease History of renal calculi History of seizures Hyperlipidemia Hypertension Insomnia Anxiety - Surgical History Surgical History: Surgical History (Last Updated 08/28/17 @ 08:13 by CYNTHIA Gibson) History of cardiac catheterization History of cholecystectomy History of tonsillectomy - Family History Family History: Family History (Last Updated 08/28/17 @ 08:51 by CYNTHIA Gibson) Mother Family history of cancer - Tobacco History Second Hand Smoke Exposure: No Tobacco Use In Past 30 Days: No Smoking Status: Never smoker - Alcohol History How Often Do You Have a Drink Containing Alcohol: Never - Substance Use History Substance History: No History of Abuse - Travel History Recent Travel in the [place] Within the Last 8 Weeks: No Recent Travel Out of the Country Within the Last 8 Weeks: No - Immunization History Tetanus Immunization: <5 Years Hx Influenza Vaccine This Season: Yes Medications and Allergies Active Medications: Active Medications Acetaminophen (Tylenol) 500 mg PO Q4H PRN PRN Reason: HEADACHE Hydrocodone Bitart/Acetaminophen ([place] 7.5/325) 1 tab PO Q4H PRN PRN Reason: PAIN SCALE 1 TO 7 Gabapentin (Neurontin) 300 mg PO TID [facility] Heparin Sodium (Porcine) (Heparin Inj) 5,000 units SQ Q12H [facility] Last Admin: 08/28/17 00:49 Dose: 5,000 units Levetiracetam (Keppra) 500 mg PO Q12H [facility] Losartan Potassium (Cozaar) 50 mg PO DAILY [facility] Morphine Sulfate (Morphine Inj) 2 mg IV.PUSH Q4H PRN PRN Reason: PAIN SCALE 8 TO 10 Non-Formulary Medication (Sertraline [Zoloft]) 25 mg PO DAILY [facility] Non-Formulary Medication (Simvastatin [Simvastatin]) 20 mg PO QPM [facility] Ondansetron HCl (Zofran Inj) 4 mg IV.PUSH Q6H PRN PRN Reason: NAUSEA Sodium Chloride (Ns Flush) 2 ml IV.FLUSH UNSCH PRN PRN Reason: FLUSH AFTER USING IV ACCESS Sodium Chloride (Ns Flush) 2 ml IV.FLUSH BID [place] Sodium Chloride (Ns Flush) 2 ml IV.FLUSH PRN PRN PRN Reason: FLUSH AFTER USING IV ACCESS Allergies Allergy/AdvReac Type Severity Reaction Status Date / Time No Known Allergies Allergy Verified 08/27/17 23:32 Home Medications Medication Instructions Recorded Confirmed Type aspirin [Aspir-81] 81 mg PO DAILY 08/27/17 08/27/17 History gabapentin 300 mg PO TID 08/27/17 08/27/17 History levetiracetam 500 mg PO Q12H 08/27/17 08/27/17 History losartan 50 mg PO DAILY 08/27/17 08/27/17 History sertraline [Zoloft] 25 mg PO DAILY 08/27/17 08/27/17 History simvastatin 20 mg PO QPM 08/27/17 08/27/17 History timolol 1 drp OPHTHALMIC (EYE) BID 08/27/17 08/27/17 History zolpidem [Ambien] 5 mg PO HS 08/27/17 08/27/17 History Exam Vital signs: Vital Signs 08/27/17 20:55 07/08/18 20:59 08/27/17 21:12 Temperature 98.1 F 98.1 F Pulse Rate 83 83 82 Respiratory Rate 18 18 18 Blood Pressure 151/64 H 176/130 H 151/64 H Pulse Oximetry 98 97 98 08/27/17 21:19 08/27/17 21:38 08/27/17 21:43 Temperature Pulse Rate 83 85 Respiratory Rate 16 18 Blood Pressure 151/64 H 135/64 Pulse Oximetry 98 98 98 08/27/17 22:56 08/28/17 00:03 08/28/17 00:54 Temperature Pulse Rate 77 66 61 Respiratory Rate 16 16 Blood Pressure 179/85 H 156/84 H 129/67 Pulse Oximetry 98 98 08/28/17 02:00 08/28/17 02:05 08/28/17 02:14 Temperature 97.3 F L Pulse Rate 50 L 52 L 52 L Respiratory Rate 22 22 20 Blood Pressure 182/84 H 182/84 H 172/78 H Pulse Oximetry 98 98 98 08/28/17 02:28 08/28/17 02:37 08/28/17 02:44 Temperature Pulse Rate 52 L 48 L Respiratory Rate 12 Blood Pressure 172/78 H Pulse Oximetry 98 97 08/28/17 04:00 08/28/17 04:21 08/28/17 06:00 Temperature 97.0 F L 97.8 F Pulse Rate 52 L 58 L 64 Respiratory Rate 20 42 H 22 Blood Pressure 188/91 H 188/91 H 153/70 H Pulse Oximetry 98 98 98 Intake & Output 08/27/17 08/28/17 08/28/17 18:59 06:59 18:59 Output Total 200 / 200 Balance -200 / -200 Weight 74.4 kg Output: Urine 200 / 200 Other: # Voids 2 Date of Last Bowel Movement 08/27/17 Weight On Admission 74.4 kg Narrative: GENERAL: Well-developed, well-nourished, in no acute distress. alert and orientated HEENT: Head is normocephalic without any lesions or masses noted. Facial features are symmetric. Eyes: Pupils equal round reactive to light. Extraocular muscles are intact. Conjunctivae were clear. Oropharyngeal: Pharynx without any erythema edema. Tongue is midline without deviation. Buccal mucosa is moist without any masses or lesions NECK: Supple without any masses. Trachea midline no deviation. No JVD, no bruits are appreciated CARDIAC: Regular rhythm, regular rate. S1/S2 are heard. No murmurs gallops or rubs. LUNGS: Clear to auscultation bilaterally. No wheeze, rhonchi or rales. No use of accessory muscles on inspiration or expiration. ABDOMEN: Soft, nontender. Nondistended. Bowel sounds heard in all 4 quadrants. No organomegaly or masses. Negative rebound, negative guarding EXTREMITIES: No edema, pulses are equal bilaterally. No cyanosis or clubbing NEUROLOGY: Mood and affect appear appropriate. Cranial nerves II through XII grossly intact. Muscle strength 5/5 in upper and lower extremities bilaterally. Deep tendon reflexes are 2+ in upper and lower extremities bilaterally. Results - Labs CBC & Chem 7: 08/27/17 21:40 08/27/17 21:40 Labs: Laboratory Results - last 24 hr 08/27/17 08/27/17 08/27/17 21:40 21:40 21:40 CBC w Diff Auto diff final WBC 10.8 RBC 4.94 Hgb 14.7 Hct 43.0 MCV 87.0 MCH 29.7 MCHC 34.2 RDW 12.6 Plt Count 275 MPV 8.7 Neut % (Auto) 78.2 H Lymph % (Auto) 10.0 [place] % (Auto) 8.3 H Eos % (Auto) 0.8 Baso % (Auto) 2.7 H Neut # (Auto) 8.4 H Lymph # (Auto) 1.1 [place] # (Auto) 0.9 Eos # (Auto) 0.1 Baso # (Auto) 0.3 H WBC Differential . Differential Comment . PT 11.1 INR 1.1 APTT 27.6 Sodium 139 Potassium 3.6 Chloride 103 Carbon Dioxide 29.2 Anion Gap 7 BUN 16 Creatinine 0.78 Estimated GFR Greater than 89 Random Glucose 123 H Calcium 8.5 Magnesium 2.0 Total Creatine Kinase Troponin I Less than 0.02 L 08/28/17 08/28/17 01:10 04:15 CBC w Diff WBC RBC Hgb Hct MCV MCH MCHC RDW Plt Count MPV Neut % (Auto) Lymph % (Auto) [place] % (Auto) Eos % (Auto) Baso % (Auto) Neut # (Auto) Lymph # (Auto) [place] # (Auto) Eos # (Auto) Baso # (Auto) WBC Differential Differential Comment PT INR APTT Sodium Potassium Chloride Carbon Dioxide Anion Gap BUN Creatinine Estimated GFR Random Glucose Calcium Magnesium Total Creatine Kinase 88 96 Troponin I Less than 0.02 L Less than 0.02 L - Imaging Impressions Chest X-Ray 08/27/17 21:19 CONCLUSION: No active disease. Caprini VTE Risk Assessment Caprini VTE Risk Assessment: Moderate/High Risk (score >= 2) Caprini Risk Assessment Model: Point Value = 1 Point Value = 2 Point Value = 3 Point Value = 5 Age 41-60 Minor surgery BMI > 25 kg/m2 Swollen legs Varicose veins or History of unexplained or recurrent spontaneous Oral contraceptives or hormone replacement Sepsis (< 1 month) Serious lung disease, including pneumonia (< 1 month) Abnormal pulmonary function Acute myocardial infarction Congestive heart failure (< 1 month) History of inflammatory bowel disease Medical patient at bed rest Age 61-74 Arthroscopic surgery Major open surgery (> 45 min) Laparoscopic surgery (> 45 min) Malignancy Confined to bed (> 72 hours) Immobilizing plaster cast Central venous access Age >= 75 History of VTE Family history of VTE Factor V Leiden Prothrombin [id number] Lupus anticoagulant Anticardiolipin antibodies Elevated serum homocysteine Heparin-induced thrombocytopenia Other congenital or acquired thrombophilia Stroke (< 1 month) Elective arthroplasty Hip, pelvis, or leg fracture Acute spinal cord injury (< 1 month) Prophylaxis Regimen: Total Risk Factor Score Risk Level Prophylaxis Regimen 0-1 Low Early ambulation 2 Moderate Order ONE of the following: *Sequential Compression Device (SCD) *Heparin 5000 units SQ BID 3-4 Higher Order ONE of the following medications: *Heparin 5000 units SQ TID *Enoxaparin/Lovenox 40 mg SQ daily (WT < 150 kg, CrCl > 30 mL/min) *Enoxaparin/Lovenox 30 mg SQ daily (WT < 150 kg, CrCl > 10-29 mL/min) *Enoxaparin/Lovenox 30 mg SQ BID (WT < 150 kg, CrCl > 30 mL/min) AND/OR *Sequential Compression Device (SCD) 5 or more Highest Order ONE of the following medications: *Heparin 5000 units SQ TID (Preferred with Epidurals) *Enoxaparin/Lovenox 40 mg SQ daily (WT < 150 kg, CrCl > 30 mL/min) *Enoxaparin/Lovenox 30 mg SQ daily (WT < 150 kg, CrCl > 10-29 mL/min) *Enoxaparin/Lovenox 30 mg SQ BID (WT < 150 kg, CrCl > 30 mL/min) AND *Sequential Compression Device (SCD) Assessment and Plan - Assessment (1) Chest pain Code(s): R07.9 - Chest pain, unspecified Status: Acute Plan: -Patient does have increased risk factors include age, male, hypertension, hyperlipidemia, coronary artery disease -Patient has been ruled out for acute coronary event with serial cardiac enzymes that are negative -Serial EKGs show sinus rhythm with incomplete right bundle branch block, possible septal infarct which appears to be old. No changes seen from previous -Discussed with Dr Krishna, who agreed with pursuing stress test -Myocardial perfusion study was performed and indicated no ischemia, low risk -Patient continue on aspirin, nitroglycerin as needed -Continue monitor telemetry -Home medications for hypertension, hyperlipidemia have been continued - Plan DVT prevention -Sequential compression devices Discussed Condition With: Dr Krishna Discharge Planning: Discharge home in stable condition Activity: Ad flaquito. Diet: Healthy heart diet Medication per medication reconciliation Follow-up with primary medical doctor in 1 week
[2017-08-28] MEDS ORDERED: Sertraline 50 MG Tablet PO SCH (09:00)
[2017-08-28] MEDS ORDERED: levETIRAcetam 500 MG Tablet PO SCH (09:00)
[2017-08-28] MEDS ORDERED: Gabapentin 300 MG Capsule PO SCH (09:00)
--- NOTE | 2017-08-28 09:53 | ECG ---
Date Performed: 08/28/2017 Time Performed: 03:36:07 PTAGE: 87 years EKG: SINUS BRADYCARDIA INCOMPLETE RIGHT BUNDLE BRANCH BLOCK SEPTAL MYOCARDIAL INFARCTION ABNORMA L ECG Since the PREVIOUS TRACING , no significant change noted PREVIOUS TRACIN08/28/2017 01.21 DOCTOR: Luigi Aviles Interpretating Date/Time 08/28/2017 09:49:56
--- NOTE | 2017-08-28 09:54 | ECG ---
Date Performed: 08/27/2017 Time Performed: 21:26:38 PTAGE: 87 years EKG: Sinus rhythm POSSIBLE RIGHT VENTRICULAR CONDUCTION DELAY SEPTAL MYOCARDIAL INFARCTION ABNORMAL ECG Since the PREVIOUS TRACING , no significant change noted PREVIOUS TRACIN08/01/2017 09.25 DOCTOR: Luigi Aviles Interpretating Date/Time 08/28/2017 09:51:32
--- NOTE | 2017-08-28 09:54 | ECG ---
Date Performed: 08/28/2017 Time Performed: 01:21:14 PTAGE: 87 years EKG: SINUS BRADYCARDIA INCOMPLETE RIGHT BUNDLE BRANCH BLOCK SEPTAL MYOCARDIAL INFARCTION ABNORMA L ECG Since the PREVIOUS TRACING , no significant change noted PREVIOUS TRACIN08/27/2017 21.26 DOCTOR: Luigi Aviles Interpretating Date/Time 08/28/2017 09:50:04
--- NOTE | 2017-08-28 11:50 | NM ---
EXAM DATE: 08/28/2017 11:29 AM EDT AGE/SEX: 87 years / Male INDICATIONS:Right Bundle Branch Block. . Left chest pain radiating to the left arm with dyspnea. CLINICAL DATA: This is the patient's initial encounter. Patient reports that signs and symptoms have been present for 1 day and indicates a pain score of 5/10. MEDICAL/SURGICAL HISTORY: Hypercholesterolemia. Hypertension. Seizures. Cholecystectomy. Ton sillectomy. Cardiac catherization. COMPARISON: No prior exams available for comparison. DOSE: 26.3 mCi Tc 99m Myoview at stress 8.7 mCi [id number] at rest 0.4 mg Lexiscan STRESS SYMPTOMS: Dyspnea. EJECTION FRACTION: 61 % TECHNIQUE: The patient underwent pharmacologic stress with infusion of prescribed dose. Continuous ECG tracing was monitored during stress. Gated SPECT imaging was performed after stress and conventi onal SPECT imaging was performed at rest. The examination was performed on a SPECT/CT scanner, both attenuation and non-corrected datasets were reviewed. FINDINGS: Distribution: The maximum perfused segment at stress is in the anterior lateral wall Perfusion Study: There is minimal decreased perfusion in the mid anterior wall small segment of quest ionable significance. Gated Study: There are intact wall motion and wall thickening without hypokinetic or dyskinetic segm ents. The ejection fraction is calculated at 61%. RISK CATEGORY: Low (<1% Annual Motality Rate) CONCLUSION: 1. Negative for significant stress-induced ischemia 2. Correlation suggested.aaaaaaaaa Electronically signed by: Billy Szymanski MD 08/28/2017 11:49 AM EDT
--- NOTE | 2017-09-04 17:44 | TR ---
Date Performed: 08/28/2017 Time Performed: 10:46:15 DOCTOR: Luigi Aviles DRUG LIST: CLINICAL HISTORY: REASON FOR TEST: Chest pain REASON FOR ENDING: OBSERVATION: CONCLUSION: COMMENTS: Lexiscan stress test was performed under standard four minute protocol. Radionuclide was injected one minute prior to ending the test. No electrocardiographic abormalities were present t o suggest ischemia. Nuclear imaging and interpretation are pending.
== END 2017-08-28 12:30 | disposition home or self-care (01) ==
LOC: PHICU 20:50 → PHEDA 20:50 → PHED 20:50 → PHICU 08-28 01:50
PROVIDERS: ADMIT Internal Medicine; ATTEND Internal Medicine
DX: F41.9 Anxiety disorder, unspecified; I10 Essential (primary) hypertension; R06.02 Shortness of breath; G47.00 Insomnia, unspecified; R07.89 Other chest pain; E78.5 Hyperlipidemia, unspecified; T46.4X5A Adverse effect of angiotensin-converting-enzyme inhibitors, initial encounter; I25.10 Atherosclerotic heart disease of native coronary artery without angina pectoris; Z87.442 Personal history of urinary calculi; G40.909 Epilepsy, unspecified, not intractable, without status epilepticus; R20.8 Other disturbances of skin sensation